=== PATIENT | male | born 1970 | race Caucasian/White ===

== ENCOUNTER → 2017-04-16 | Outpatient (CLI) | payer OTHER ==
--- NOTE | 2017-04-16 10:09 | Diagnostic Imaging Report ---
INDICATION: Low back pain Lumbar spine AP and lateral views of the lumbar spine show normal vertebral body height and alignment. Disc spaces are well maintained. IMPRESSION: Negative lumbar spine Dictated by: Dictated on workstation # [id number]
--- NOTE | 2017-04-16 10:13 | Diagnostic Imaging Report ---
EXAMINATION: Sacroiliac joints. INDICATION: Back pain. TECHNIQUE: Three views of the sacroiliac joints were obtained. COMPARISON: There are no prior studies available for comparison. FINDINGS: There is no fracture, dislocation, or acute bony abnormality evident. There is mild symmetrical sclerosis of the sacroiliac joints. The soft tissues are unremarkable. Numerous surgical clips are seen overlying each side of the pelvis. IMPRESSION: 1. There is no evidence for an acute bony abnormality. 2. If clinical concern regarding an underlying abnormality persists, then MRI would be recommended for further study. 3. These results were discussed with Rosmery Leary APRN. Dictated by: Dictated on workstation # [id number]
== END ==
LOC: RAD 09:45
PROVIDERS: ATTEND Nurse Practitioner Family
DX: M54.5 Low back pain (principal)
CPT/HCPCS: 72100; 72202

== ENCOUNTER → 2017-04-22 | Outpatient (CLI) | payer OTHER ==
[~2017-04-22] MED LIST: GADOBUTROL 10 MMOL/10 ML (GADAVIST) VIAL IV ONE
[2017-04-22 10:24] LABS: BUN/CREATININE RATIO 21; CREATININE SERUM 0.85 MG/DL (0.60-1.30); GFR ESTIMATED > 60
--- NOTE | 2017-04-22 11:55 | Diagnostic Imaging Report ---
PROCEDURE: MRI lumbar spine with and without contrast. TECHNIQUE: Multiplanar, multisequence MRI of the lumbar spine was performed with and without contrast. INDICATION: Back pain, left leg pain. FINDINGS: There are no previous MRI examinations available for comparison. The plain film examination of the lumbar spine performed on 04/16/2017 failed to show any sign of an acute bony abnormality. On the T2 sagittal images of this exam, the vertebral body heights and alignment are within normal limits. There is mild narrowing of the disc space at L5-S1, and the disc at this level is desiccated. Furthermore, there is a prominent disc protrusion to the left at this level. The disc compresses the left ventral aspect of the thecal sac and does produce spinal stenosis. The disc material is also in close proximity to the exiting left nerve root, and I suspect that there is encroachment of the nerve root by the disc material. The remainder of the lumbar spine is unremarkable for a high-grade central stenosis. There is mild narrowing of the neural foramen bilaterally at L4-5. There is no other neural foraminal narrowing identified. There is no abnormal signal arising from the cord or the vertebral bodies to indicate an acute abnormality. There is no sign of a paraspinal mass. IMPRESSION: 1. There is a large focal disc protrusion to the left at L5-S1. This does result in spinal stenosis and there may well be encroachment of the exiting left nerve root. 2. The remainder of the lumbar spine is unremarkable for spinal stenosis or any significant neural foraminal narrowing. 3. There is no sign of an acute bony abnormality or of a cord lesion. Dictated by: Dictated on workstation # [id number]
== END ==
LOC: RAD 09:33
PROVIDERS: ATTEND Nurse Practitioner Family
DX: M51.27 Other intervertebral disc displacement, lumbosacral region (principal)
CPT/HCPCS: 36415; 72158; 82565; 84520

== ENCOUNTER → 2017-05-06 | Outpatient (CLI) | payer OTHER ==
[2017-05-06 10:26] LABS: BASOPHILS % (AUTO) 0 % (0-10); EOSINOPHILS # (AUTO) 0.4 10^3/uL (0.0-0.3); EOSINOPHILS % (AUTO) 3 % (0-10); HEMATOCRIT 44 % (40-54); HEMOGLOBIN 15.7 G/DL (13.3-17.7); LYMPHOCYTES # (AUTO) 2.1 X 10^3 (1.0-4.0); LYMPHOCYTES % (AUTO) 13 % (12-44); MEAN CORPUSCULAR HEMOGLOBIN 34 PG (25-34); MEAN CORPUSCULAR HGB CONC 36 G/DL (32-36); MEAN CORPUSCULAR VOLUME 95 FL (80-99); MEAN PLATELET VOLUME 8.4 FL (7.4-10.4); MONOCYTES # (AUTO) 1.5 X 10^3 (0.0-1.0); MONOCYTES % (AUTO) 9 % (0-12); NEUTROPHILS # (AUTO) 12.1 X 10^3 (1.8-7.8); NEUTROPHILS % (AUTO) 75 % (42-75); PLATELET COUNT 290 10^3/uL (130-400); RED BLOOD COUNT 4.61 10^6/uL (4.35-5.85); RED CELL DISTRIBUTION WIDTH 13.1 % (10.0-14.5); WHITE BLOOD COUNT 16.1 10^3/uL (4.3-11.0)
[2017-05-06 10:46] LABS: ALANINE AMINOTRANSFERASE 42 U/L (0-55); ALBUMIN 4.1 GM/DL (3.2-4.5); ALKALINE PHOSPHATASE 125 U/L (40-136); BILIRUBIN,TOTAL 0.6 MG/DL (0.1-1.0); BUN/CREATININE RATIO 27; CARBON DIOXIDE 22 MMOL/L (21-32); CHLORIDE 107 MMOL/L (98-107); CREATININE SERUM 0.82 MG/DL (0.60-1.30); GFR ESTIMATED > 60; GLUCOSE 126 MG/DL (70-105); POTASSIUM 3.8 MMOL/L (3.6-5.0); SODIUM 141 MMOL/L (135-145); TOTAL PROTEIN 7.1 GM/DL (6.4-8.2)
[2017-05-06 10:53] LABS: BAND NEUTROPHILS 2 %; BASOPHILS % (MANUAL) 0 %; EOSINOPHILS % (MANUAL) 3 %; LYMPHOCYTES % (MANUAL) 9 %; MONOCYTES % (MANUAL) 10 %; NEUTROPHILS % (MANUAL) 76 %; RBC MORPH NORMAL
== END ==
LOC: LAB 10:08
PROVIDERS: ATTEND Family Medicine
DX: R74.8 Abnormal levels of other serum enzymes (principal); D72.829 Elevated white blood cell count, unspecified
CPT/HCPCS: 36415; 80053; 85007; 85027

== ENCOUNTER 2017-05-07 08:04 | Outpatient (RCR) | payer OTHER ==
[2017-05-07 08:32] LABS: BILIRUBIN,URINE NEGATIVE (NEGATIVE); CLARITY,URINE CLEAR; COLOR,URINE YELLOW; GLUCOSE, URINE (UA) NEGATIVE (NEGATIVE); KETONES,URINE NEGATIVE (NEGATIVE); LEUKOCYTE ESTERASE ,URINE 1+ (NEGATIVE); NITRITE,URINE NEGATIVE (NEGATIVE); PH,URINE 5 (5-9); PROTEIN,URINE 1+ (NEGATIVE); UROBILINOGEN,URINE 1 MG/DL (NORMAL)
[2017-05-07 08:46] LABS: BACTERIA,URINE TRACE /HPF; SQUAMOUS EPITHELIAL CELL,UR RARE /HPF; WBC,URINE 0-2 /HPF
== END 2017-08-05 | disposition home or self-care (01) ==
LOC: LAB 08:04
PROVIDERS: ATTEND Nurse Practitioner Family
DX: D72.829 Elevated white blood cell count, unspecified (principal)
CPT/HCPCS: 81000

== ENCOUNTER → 2017-05-07 | Outpatient (CLI) | payer OTHER ==
--- NOTE | 2017-05-07 08:27 | Diagnostic Imaging Report ---
INDICATION: Elevated white blood cell count. TIME OF EXAM: 8:28 AM No prior studies are available for comparison. FINDINGS: The heart size is normal. The lungs are hyperinflated, perhaps owing to COPD. No infiltrates are seen. No effusion or pneumothorax is identified. The pulmonary vascularity is unremarkable. There is some linear density in the right base which may represent some atelectasis. IMPRESSION: Hyperinflation and minimal atelectasis or scarring in the right lung base. No acute infiltrate is identified. Dictated by: Dictated on workstation # [id number]
== END ==
LOC: RAD 08:03
PROVIDERS: ATTEND Nurse Practitioner Family
DX: D72.829 Elevated white blood cell count, unspecified (principal); R91.8 Other nonspecific abnormal finding of lung field
CPT/HCPCS: 71046

== ENCOUNTER → 2017-05-11 | Outpatient (CLI) | payer OTHER ==
[2017-05-11 09:16] LABS: BASOPHILS % (AUTO) 0 % (0-10); EOSINOPHILS # (AUTO) 0.3 10^3/uL (0.0-0.3); EOSINOPHILS % (AUTO) 2 % (0-10); HEMATOCRIT 45 % (40-54); HEMOGLOBIN 16.2 G/DL (13.3-17.7); LYMPHOCYTES # (AUTO) 2.6 X 10^3 (1.0-4.0); LYMPHOCYTES % (AUTO) 20 % (12-44); MEAN CORPUSCULAR HEMOGLOBIN 34 PG (25-34); MEAN CORPUSCULAR HGB CONC 36 G/DL (32-36); MEAN CORPUSCULAR VOLUME 94 FL (80-99); MEAN PLATELET VOLUME 8.3 FL (7.4-10.4); MONOCYTES # (AUTO) 1.1 X 10^3 (0.0-1.0); MONOCYTES % (AUTO) 9 % (0-12); NEUTROPHILS # (AUTO) 8.5 X 10^3 (1.8-7.8); NEUTROPHILS % (AUTO) 68 % (42-75); PLATELET COUNT 233 10^3/uL (130-400); RED BLOOD COUNT 4.81 10^6/uL (4.35-5.85); RED CELL DISTRIBUTION WIDTH 13.1 % (10.0-14.5); WHITE BLOOD COUNT 12.5 10^3/uL (4.3-11.0)
[2017-05-11 09:39] LABS: ALANINE AMINOTRANSFERASE 40 U/L (0-55); ALBUMIN 4.3 GM/DL (3.2-4.5); ALKALINE PHOSPHATASE 126 U/L (40-136); BILIRUBIN,TOTAL 0.7 MG/DL (0.1-1.0); BUN/CREATININE RATIO 16; CALCIUM 9.5 MG/DL (8.5-10.1); CARBON DIOXIDE 22 MMOL/L (21-32); CHLORIDE 105 MMOL/L (98-107); CREATININE SERUM 0.85 MG/DL (0.60-1.30); GFR ESTIMATED > 60; GLUCOSE 92 MG/DL (70-105); POTASSIUM 3.9 MMOL/L (3.6-5.0); SODIUM 140 MMOL/L (135-145); TOTAL PROTEIN 7.5 GM/DL (6.4-8.2)
== END ==
LOC: LAB 08:57
PROVIDERS: ATTEND Family Medicine
DX: D72.829 Elevated white blood cell count, unspecified (principal); R74.8 Abnormal levels of other serum enzymes
CPT/HCPCS: 36415; 80053; 85025

== ENCOUNTER → 2018-07-21 | Outpatient (CLI) | payer OTHER ==
--- NOTE | 2018-07-21 14:03 | Diagnostic Imaging Report ---
PROCEDURE: CT head without contrast. TECHNIQUE: Multiple contiguous axial images were obtained through the brain without the use of intravenous contrast. Auto Exposure Controls were utilized during the CT exam to meet ALARA standards for radiation dose reduction. INDICATION: Subarachnoid hemorrhage and cerebral aneurysm. FINDINGS: There is marked beam hardening artifact from aneurysm coils. Ventricles and sulci appear to be within normal limits. There is no hydrocephalus. There is no midline shift. There is no intracranial mass, hemorrhage, or extra-axial fluid collection. Calvarium is intact. Sinuses and mastoid air cells are clear. IMPRESSION: No acute intracranial abnormality. Examination is limited due to significant beam hardening artifact from several aneurysm coils. Dictated by: Dictated on workstation # [id number]
== END ==
LOC: RAD 12:38
PROVIDERS: ATTEND Family Medicine
DX: I60.9 Nontraumatic subarachnoid hemorrhage, unspecified (principal); I67.1 Cerebral aneurysm, nonruptured
CPT/HCPCS: 70450

== ENCOUNTER 2018-07-26 13:03 | Outpatient (RCR) | payer OTHER | END 2018-08-17 09:36 | disposition home or self-care (01) | PROVIDERS: ATTEND Family Medicine | DX: I69.098 Other sequelae following nontraumatic subarachnoid hemorrhage (principal); H53.2 Diplopia; R29.898 Other symptoms and signs involving the musculoskeletal system ==

== ENCOUNTER → 2019-08-23 | Outpatient (CLI) | payer OTHER ==
[2019-08-23 07:23] LABS: BASOPHILS % (AUTO) 1 % (0-10); EOSINOPHILS # (AUTO) 0.2 10^3/uL (0.0-0.3); EOSINOPHILS % (AUTO) 2 % (0-10); HEMATOCRIT 42 % (40-54); HEMOGLOBIN 14.5 G/DL (13.3-17.7); LYMPHOCYTES # (AUTO) 1.6 X 10^3 (1.0-4.0); LYMPHOCYTES % (AUTO) 20 % (12-44); MEAN CORPUSCULAR HEMOGLOBIN 32 PG (25-34); MEAN CORPUSCULAR HGB CONC 34 G/DL (32-36); MEAN CORPUSCULAR VOLUME 93 FL (80-99); MEAN PLATELET VOLUME 8.5 FL (7.4-10.4); MONOCYTES # (AUTO) 0.8 X 10^3 (0.0-1.0); MONOCYTES % (AUTO) 10 % (0-12); NEUTROPHILS # (AUTO) 5.6 X 10^3 (1.8-7.8); NEUTROPHILS % (AUTO) 68 % (42-75); PLATELET COUNT 303 10^3/uL (130-400); RED CELL DISTRIBUTION WIDTH 13.2 % (10.0-14.5); WHITE BLOOD COUNT 8.2 10^3/uL (4.3-11.0)
[2019-08-23 07:40] LABS: ALANINE AMINOTRANSFERASE 56 U/L (0-55); ALBUMIN 4.2 GM/DL (3.2-4.5); ALKALINE PHOSPHATASE 161 U/L (40-136); BILIRUBIN,TOTAL 0.4 MG/DL (0.1-1.0); BUN/CREATININE RATIO 13; CALCIUM 9.2 MG/DL (8.5-10.1); CARBON DIOXIDE 21 MMOL/L (21-32); CHLORIDE 111 MMOL/L (98-107); CHOLESTEROL 144 MG/DL (< 200); CREATININE SERUM 0.96 MG/DL (0.60-1.30); GFR ESTIMATED > 60; GLUCOSE 101 MG/DL (70-105); HDL CHOLESTEROL 52 MG/DL (40-60); SODIUM 143 MMOL/L (135-145); TOTAL PROTEIN 7.6 GM/DL (6.4-8.2); TRIGLYCERIDES 267 MG/DL (<150); VLDL CHOLESTEROL 53 MG/DL (5-40)
== END ==
LOC: LAB 07:05
PROVIDERS: ATTEND Family Medicine
DX: E78.2 Mixed hyperlipidemia (principal); I10 Essential (primary) hypertension
CPT/HCPCS: 36415; 80053; 80061; 85025

== ENCOUNTER 2022-05-13 11:17 | Emergency (ER) | payer OTHER ==
[~2022-05-13] VITALS: Ht 180.3 cm; Wt 86.1 kg
--- NOTE | 2022-05-13 11:27 | ED EENT ---
History of Present Illness General Chief Complaint: Nasal Problems Stated Complaint: BLOODY NOSE Source: patient Exam Limitations: no limitations History of Present Illness Date Seen by Provider: May 13, 2022 Time Seen by Provider: 11:25 Initial Comments Patient is a 52-year-old male who presents to the emergency department for evaluation of left-sided nosebleed. Patient states the symptoms began approximately 15 minutes prior to arrival. States he has been having daily nosebleeds for the last 4 to 5 days. States they have lasted as long as 1 hour. States he is not on any current anticoagulation medication. Denies any recent nasal trauma. States the bleeding has always occurred from his left nostril. Denies any bloody emesis. Denies any nasal pain. Denies any difficulty breathing. Allergies and Home Medications Allergies Coded Allergies: No Known Drug Allergies (Unverified , 04/22/17) Patient Home Medication List Home Medication List Reviewed: Yes Review of Systems Review of Systems Constitutional: no symptoms reported Eyes: No Symptoms Reported Ears: No Symptoms Reported Nose: see HPI, clots, epistaxis Mouth: no symptoms reported Throat: no symptoms reported Respiratory: no symptoms reported Cardiovascular: no symptoms reported Gastrointestinal: no symptoms reported Musculoskeletal: no symptoms reported Skin: no symptoms reported Neurological: No Symptoms Reported Hematologic/Lymphatic: No Symptoms Reported Immunological/Allergic: no symptoms reported Physical Exam Vital Signs Vital Signs - First Documented 05/13/22 05/13/22 11:20 13:24 Temp 35.8 Pulse 91 Resp 18 B/P (MAP) 150/99 (116) Pulse Ox 96 O2 Delivery Room Air Height, Weight, BMI Height: '" Weight: lbs. oz. kg; BMI Method: General Appearance: WD/WN, no apparent distress Nose: active bleeding, dried blood Neck: non-tender, full range of motion, supple, normal inspection Cardiovascular: regular rate, rhythm Respiratory: chest non-tender, lungs clear, normal breath sounds, no respiratory distress, no accessory muscle use Gastrointestinal: normal bowel sounds, non tender, soft Neurologic/Psychiatric: no motor/sensory deficits, alert, normal mood/affect, oriented x 3 Skin: normal color, warm/dry Progress/Results/Core Measures Results/Orders My Orders Orders - LAVELL TAY APRN Oxymetazoline 0.05% Nasal [place] (Afrin 0. (05/13/22 11:30) Vital Signs/I&O Progress Progress Note : Progress Note Patient is nontoxic and well-hydrated on exam. There was some venous oozing noted from the left nostril upon patient's arrival. A nose clamp was placed. 2 sprays of Afrin were instilled into the affected nostril. After an additional several minutes the clamp was removed and anterior rhinoscopy performed. There appears to be a well formed clot noted to the anterior lateral aspect of the left nostril. No active bleeding appreciated. Discussed importance of not blowing or picking nose. Also encouraged close follow-up with ENT if the symptoms persist. Just prior to him being discharged the patient stated he had a sudden increase in his bleeding that had before been hemostatic. Due to this a 4 and half centimeter anterior Rhino Rocket was placed to the left nostril after soaking in sterile water per cow trimmer instructions. A total of 7 mL of air was instilled into the inflation port. Patient was then monitored for an additional 15 minutes and had no persistent significant epistaxis. Patient has an appointment with his PCP to have further evaluation and removal of the Rhino Rocket on . Return precautions for urgent symptomology discussed. Patient verbalized understanding. Departure Impression Primary Impression: Epistaxis Disposition: HOME, SELF-CARE Condition: Stable Departure-Patient Inst. Decision time for Depature: 12:40 Referrals: SHARYN BUSTAMANTE MD, JACQUELINE S DO (PCP/Family) Primary Care Physician Patient Instructions: Nosebleeds ED Add. Discharge Instructions: You have had a nasal tamponade device placed to help control your nose bleeding. This will need to be removed in 24 to 72 hours. You need to follow-up with your regular physician for evaluation and to have the device removed. It is important you do not remove the device yourself if at all possible. If you continue to have significant bleeding despite the insertion of this device, please return to the emergency department for further evaluation. All discharge instructions reviewed with patient and/or family. Voiced understanding. Work/School Note: Work Release Form Date Seen in the Emergency Department: May 13, 2022 Return to Work: May 16, 2022 LAVELL TAY APRN May 13, 2022 11:27
[2022-05-13] MEDS ORDERED: OXYMETAZOLINE (AFRIN) 0.05% NA 30 ML BTL SCH (11:30)
[2022-05-13 13:24] VITALS: BP 148/101
== END 2022-05-13 13:25 | disposition home or self-care (01) ==
LOC: EDUNIT# 11:17 → ER 11:19
DX: R04.0 Epistaxis (principal)
CPT/HCPCS: 30901